=== PATIENT | female | born 1995 | race African-American/Black ===

== ENCOUNTER 2020-03-25 13:11 | Emergency (ER) | payer MEDICAID ==
[~2020-03-25] VITALS: Ht 167.6 cm; Wt 78.0 kg
[2020-03-25 13:53] LABS: CLARITY URINE CLEAR (CLEAR); COLOR URINE ORANGE (YELLOW); KETONES URINE NEGATIVE (NEGATIVE); LEUKOCYTE ESTERASE URINE TRACE (NEGATIVE); NITRITE URINE NEGATIVE (NEGATIVE); OCCULT BLOOD URINE 3+ (NEGATIVE); PROTEIN URINE TRACE (NEGATIVE); SPECIFIC GRAVITY URINE 1.015 (1.005-1.030)
[2020-03-25 14:25] LABS: BASOPHILS % 0.8 % (0.0-2.0); EOSINOPHILS % 1.3 % (0.0-5.0); HEMATOCRIT. 41.8 % (36.0-48.0); HEMOGLOBIN. 14.2 g/dL (12.0-16.0); LYMPHOCYTES % 21.9 % (20.0-50.0); MEAN CORPUSCULAR HEMOGLOBIN 30.1 pg (28.0-32.0); MEAN CORPUSCULAR VOLUME 88.6 fL (81.0-99.0); MEAN PLATELET VOLUME 8.3 fl (7.4-10.4); MONOCYTES % 4.6 % (2.0-8.0); NEUTROPHILS % 71.4 % (40.0-76.0); PLATELET 248 x1000/uL (130-400); RED BLOOD CELL COUNT 4.72 mill/uL (4.2-5.4); RED CELL DISTRIBUTION WIDTH 12.5 % (11.6-14.6)
[2020-03-25 14:31] LABS: CHLORIDE 108 mEq/L (98-107)
[2020-03-25 14:45] LABS: B-HCG QUANTITATIVE 101 mIU/mL (<3)
[2020-03-25] MEDS ORDERED: HEPARIN 1000 UNITS/ML 10ML ONE (15:08)
[2020-03-25 16:30] VITALS: BP 115/84
== END 2020-03-25 17:09 | disposition home or self-care (01) ==
LOC: ER 13:11
DX: O20.0 Threatened abortion (principal); O23.41 Unspecified infection of urinary tract in pregnancy, first trimester; Z3A.01 Less than 8 weeks gestation of pregnancy; Z88.2 Allergy status to sulfonamides
CPT/HCPCS: 36415; 76801; 80053; 81003; 81025; 84702; 85025; 86850; 86900; 99284; J1644

== ENCOUNTER 2020-03-31 07:15 | Inpatient (IN) | payer MEDICAID ==
[~2020-03-31] VITALS: Ht 167.6 cm; Wt 76.7 kg
[2020-03-31 08:25] LABS: BASOPHILS % 0.4 % (0.0-2.0); EOSINOPHILS % 5.1 % (0.0-5.0); HEMOGLOBIN. 13.5 g/dL (12.0-16.0); LYMPHOCYTES % 38.2 % (20.0-50.0); MEAN CORPUSCULAR HEMOGLOBIN 30.4 pg (28.0-32.0); MEAN CORPUSCULAR VOLUME 87.9 fL (81.0-99.0); MEAN PLATELET VOLUME 8.4 fl (7.4-10.4); MONOCYTES % 6.8 % (2.0-8.0); NEUTROPHILS % 49.5 % (40.0-76.0); PLATELET 225 x1000/uL (130-400); RED BLOOD CELL COUNT 4.44 mill/uL (4.2-5.4); RED CELL DISTRIBUTION WIDTH 12.4 % (11.6-14.6)
[2020-03-31 08:27] LABS: CHLORIDE 108 mEq/L (98-107)
[2020-03-31 08:40] LABS: B-HCG QUANTITATIVE 164 mIU/mL (<3)
[2020-03-31 09:53] LABS: CLARITY URINE CLOUDY (CLEAR); COLOR URINE ORANGE (YELLOW); KETONES URINE NEGATIVE (NEGATIVE); LEUKOCYTE ESTERASE URINE 1+ (NEGATIVE); NITRITE URINE NEGATIVE (NEGATIVE); OCCULT BLOOD URINE 3+ (NEGATIVE); PH URINE 5.5 (4.5-8.0); PROTEIN URINE 2+ (NEGATIVE); SPECIFIC GRAVITY URINE 1.026 (1.005-1.030)
[2020-03-31] MEDS ORDERED: CEFTRIAXONE 1 G PREMIX 50 ML IV SCH (11:30)
[2020-03-31] MEDS ORDERED: NITR-87 MT (18:23)
[2020-03-31 18:25] VITALS: BP 134/76
[2020-03-31 18:33] VITALS: BP 134/76
[2020-03-31 20:00] VITALS: BP 111/74
[2020-04-01] VITALS: BP 109/61
[2020-04-01] MEDS ORDERED: ACETAMINOPHEN WITH CODEINE 300/30MG TABLET PO PRN (02:00)
[2020-04-01] MEDS ORDERED: LACTATED RINGERS 1,000 ML IV SCH (02:00)
[2020-04-01 04:00] VITALS: BP 107/51
[2020-04-01 15:23] VITALS: BP 119/61
[2020-04-01] MEDS ORDERED: METHOTREXATE SODIUM/PF 50 MG/2 ML VIAL IM NR ×3 (16:30)
== END 2020-04-01 17:28 | disposition home or self-care (01) | DRG 564 ==
LOC: ER 08:00 → 6EST 10:59 → EDBEDREQ 11:32 → ENRESERV 16:47
PROVIDERS: ADMIT Obstetrics & Gynecology; ATTEND Obstetrics & Gynecology
DX: O03.9 Complete or unspecified spontaneous abortion without complication (principal); Z79.899 Other long term (current) drug therapy; Z88.2 Allergy status to sulfonamides
CPT/HCPCS: 36415; 76801; 80053; 81003; 84702; 85025; 86850; 86900; 99285; J0696; J7120; J9260